=== PATIENT | male | born 1965 | race Caucasian/White ===

== ENCOUNTER 2018-08-05 06:00 | Day surgery (SDC) | payer MEDICAID ==
[~2018-08-05] VITALS: Ht 167.6 cm; Wt 90.7 kg
[2018-08-05] MEDS ORDERED: LACTATED RINGERS 1,000 ML IV SCH (06:30)
[2018-08-05] MEDS ORDERED: PROPOFOL 200MG/20ML VIAL IV ONE (07:45)
[2018-08-05] MEDS ORDERED: FENTANYL CITRATE/PF 50MCG/ML 5ML VIAL ONE (07:45)
[2018-08-05] MEDS ORDERED: BUPIVACAINE HCL/PF 0.5% (5MG/ML) 10ML ONE (07:45)
[2018-08-05] MEDS ORDERED: MIDAZOLAM HCL 2 MG/2 ML VIAL ONE (07:45)
[2018-08-05] MEDS ORDERED: LIDOCAINE HCL/PF 1% 10 MG/ML 5ML VIAL ONE (07:46)
[2018-08-05] MEDS ORDERED: KETOROLAC 30MG/ML VIAL ONE (07:46)
[2018-08-05] MEDS ORDERED: DEXAMETHASONE 4MG/ML 1ML VIAL ONE (07:46)
[2018-08-05] MEDS ORDERED: CEFAZOLIN SODIUM 1000MG/VIAL ONE (07:46)
[2018-08-05] MEDS ORDERED: SKIN ADHESIVE 0.7 GM EA TOP ONE (08:18)
== END 2018-08-05 10:30 | disposition home or self-care (01) ==
LOC: OR 06:00
PROVIDERS: ATTEND Surgery
DX: L72.0 Epidermal cyst (principal); F10.10 Alcohol abuse, uncomplicated; E66.9 Obesity, unspecified; Z68.33 Body mass index [BMI] 33.0-33.9, adult; Z79.899 Other long term (current) drug therapy; Z87.891 Personal history of nicotine dependence
CPT/HCPCS: 11423; 88304; G0168; J0690; J1100; J1885; J2250; J3010; J3490; J7040; J7120; J2704